=== PATIENT | male | born 1965 | race Hispanic/Latino ===

== ENCOUNTER 2024-05-25 17:29 | Emergency (ER) | payer SELFPAY ==
[~2024-05-25] VITALS: Ht 160 cm; Wt 72.6 kg
[2024-05-25] MEDS: MAG/ALUM/SIMETH 30 ML UDCUP PO ONE (20:42)
[2024-05-25 20:51] VITALS: BP 110/68; PULSE 70; RESP 18; TEMP 98.1; O2SAT 100
== END 2024-05-25 20:55 | disposition home or self-care (01) ==
LOC: EDH 17:29
DX: R09.A2 Foreign body sensation, throat (principal)
CPT/HCPCS: 70360